=== PATIENT | female | born 1935 | race Caucasian/White ===

== ENCOUNTER 2017-09-06 15:55 | Observation (INO) | payer MEDICARE ==
--- NOTE | 2017-09-06 16:28 | RAD ---
UPRIGHT PORTABLE CHEST ONE VIEW 09/06/17 HISTORY: 81-year-old female with history of chest pain. COMPARISON: 12/26/05. Postop midline sternotomy and coronary artery bypass changes. Minimal cardiomegaly. Biapical pleural thickening. Atherosclerosis of the aorta with ectasia. IMPRESSION: Minimal cardiomegaly. Postop midline sternotomy. Biapical pleural thickening. Atherosclerosis of the aorta with ectasia. Little change from prior study. POS: OFF
[2017-09-06 16:45] LABS: #Eosinphils 0.3 thou/uL (0.0-0.7); #Lymphocytes 2.3 thou/uL (1.20-3.40); #Monocytes 0.9 thou/uL (0.11-0.59); #Neutrophils 3.4 thou/uL (1.40-6.50); %Basophils 0.2 % (0.0-1.0); %Monocytes 13.5 % (0.0-10.0); %Neutrophils 49.2 % (42.0-75.0); Hemoglobin 14.1 g/dL (12.0-16.0); Mean Corpuscular Hemoglobin 32.5 pg (27.0-31.0); Mean Corpuscular Volume 98.5 fl (81.0-99.0); Mean Platelet Volume 6.6 fL (7.4-10.4); Platelet Count 244 thou/uL (130-400); RBC Distribution Width 12.1 % (11.5-14.5); Red Blood Cell (RBC) Count 4.33 mill/uL (4.20-5.40); White Blood Cell (WBC) Count 6.8 thou/uL (4.8-10.8)
[2017-09-06 17:04] LABS: ALT (SGPT) 11 U/L (8-55); AST (SGOT) 19 U/L (5-34); Albumin 3.7 g/dL (3.4-4.8); Alkaline Phosphatase 122 U/L (40-150); Anion Gap 9 mmol/L (10-20); BUN (Urea Nitrogen) 25 mg/dL (9.8-20.1); Bilirubin, Total 1.1 mg/dL (0.2-1.2); CK (CPK) 60 U/L (29-168); Calc. Creatinine Clearance 0 mL/min (70-130); Calcium 8.9 mg/dL (7.8-10.44); Carbon Dioxide 28 mmol/L (23-31); Chloride 106 mmol/L (98-107); Estimated GFR-MDRD 78; Globulin 2.8 g/dL (2.4-3.5); Glucose 115 mg/dL (83-110); Potassium 3.9 mmol/L (3.5-5.1); Protein, Total 6.5 g/dL (6.0-8.3); Sodium 139 mmol/L (136-145)
[2017-09-06 17:07] LABS: Troponin I Less than 0.010 ng/mL (< 0.028)
[2017-09-06] MEDS ORDERED: Nitroglycerin 0.4 MG TAB (25 Tab Bottle) PO PRN (18:39)
[2017-09-06] MEDS ORDERED: Nitroglycerin 2% Ointment 1 INCH/1 GM Packet ONE (18:57)
[2017-09-06 22:15] VITALS: BMI 36.0
[2017-09-07] MEDS ORDERED: Ondansetron HCl/PF 4 MG/2 ML Vial IVP PRN (04:47)
[2017-09-07] MEDS ORDERED: Acetaminophen 325 MG TAB PO PRN (04:47)
--- NOTE | 2017-09-07 05:37 | HP ---
CHIEF COMPLAINT: Chest pain. HISTORY OF PRESENT ILLNESS: This is an 81-year-old female with a prior history of CABG x4 for coronary artery disease, hypertension, who presented with a chief complaint of chest pain. It appears that this was described initially per ER documentation as a substernal chest pain that radiated to the back and worse with exertion. Unfortunately, the patient also has a component of dementia and is otherwise a poor historian. At the time of my evaluation, patient denies any chest pain. She also is not able to recall what her coronary artery bypass or her heart disease was, although she does endorse having some complaint of shortness of breath with easy exertion for the last several days. Per the ER records, it appears that the daughter who was previously at bedside and currently not present reported cough, congestion, night sweats, worsening shortness of breath with mild exertion. REVIEW OF SYSTEMS: As per HPI. Constitutional: No fevers, no chills, other than the night sweats without accompanying temperature. HEENT: Denies any headaches, vision changes, lightheadedness, or dizziness. Cardiovascular: Chest pain as substernal described as above, currently resolved since being in the emergency department. Respiratory: Shortness of breath with exertion, none at rest. Patient herself currently denies any cough. Gastrointestinal: Denies any nausea, vomiting, abdominal pain issues with diarrhea, or constipation. Genitourinary: Denies any issues with dysuria, urinary change, and frequency, or odor. Musculoskeletal: Denies any active myalgias or arthralgias. Remainder of the review of systems otherwise negative. Please see concern for the accuracy of the review of systems given the patient's history of dementia and poor recall of her past medical history. PAST MEDICAL HISTORY: As per above includes, 1. CABG x4 in 2000. 2. Coronary artery disease. 3. "Dementia." 4. Gastroesophageal reflux disease. 5. Prior history of gastric ulcers. 6. Hypothyroidism. 7. Hyperlipidemia 8. Hypertension. 9. Status post bilateral total knee replacement. 10. Status post appendectomy. 11. Status post CABG as noted above. 12. Status post hysterectomy. HOME MEDICATIONS: Please see the EMR for full details. The patient's current regimen seems to be involved metoprolol tartrate 25 mg p.o. b.i.d., levothyroxine 137 mcg p.o. daily, escitalopram oxalate 10 mg p.o. daily, atorvastatin 10 mg p.o. at bedtime, aspirin 81 mg p.o. daily. ALLERGIES: CODEINE, undocumented reaction. FAMILY HISTORY: Patient denies any family history of coronary artery disease. SOCIAL HISTORY: Patient resides at home with her daughter. Denies any tobacco , alcohol, or illicit drug use. PHYSICAL EXAMINATION: GENERAL: Patient is awake, conversant, in no acute distress, lying in the hospital bed. HEENT: Normocephalic, atraumatic, slightly dry mucous membranes. Equal ocular motions are intact. CARDIOVASCULAR: S1, S2. No murmurs, rubs, or gallops. EXTREMITIES: Pulses 2+ bilateral upper extremities, no pitting pedal edema. RESPIRATORY: Reasonable air movement. No wheezes, rales, or rhonchi. Clear to auscultation bad bilaterally. ABDOMEN: Positive bowel sounds, soft, nontender to palpation. LABORATORY DATA AND IMAGING: WBC 6.8, hemoglobin 14.1, hematocrit 42.7, platelets 244. Sodium 139, potassium 3.9, chloride 106, bicarbonate 28, BUN 25 , creatinine 0.72, glucose is 115, calcium 8.9. Total bilirubin 1.1, AST 19, ALT 11, alkaline phosphatase 122. Troponin 0.01 followed by 0.01. BNP natriuretic peptide 97.7, total protein 6.5, albumin 3.7, lipase is 29. On 2017, chest x-ray, impression: Minimal cardiomegaly. Postop midline sternotomy. Biapical pleural thickening. Atherosclerosis of the aorta with ectasia. Little change from prior study. ASSESSMENT AND PLAN: An 81-year-old female who presents with a chief complaint of chest pain at the known history of coronary artery bypass graft. Concern for cardiac etiology of the patient's chest pain. Serial troponins, check an echocardiogram and consult Cardiology given the patient's significant risk factors, question of whether or not a stress test would be warranted in this patient. 1. Hypertension, stable. 2. Hyperlipidemia, stable. 3. Dementia, appears to be grossly stable. DIET: Cardiac. ACTIVITY: As tolerated. Deep venous thrombosis prophylaxis on Lovenox. Admit the patient to observation status, on telemetry [facility]
[2017-09-07] MEDS ORDERED: Enoxaparin Sodium 30 MG/0.3 ML SYRINGE SC SCH (09:00)
[2017-09-07] MEDS ORDERED: Famotidine 40 MG/4 ML VIAL SLOW IVP SCH (09:00)
[2017-09-07] MEDS ORDERED: Metoprolol Tartrate 25 MG TAB PO SCH ×2 (09:30→21:00)
[2017-09-07] MEDS ORDERED: Escitalopram Oxalate 10 mg Tablet PO SCH (09:30)
[2017-09-07] MEDS ORDERED: Aspirin 81 mg Enteric Coated Tablet PO SCH (09:30)
--- NOTE | 2017-09-07 11:31 | CON ---
DATE OF CONSULTATION: 09/07/2017 REASON FOR CONSULTATION: Chest pain. HISTORY OF PRESENT ILLNESS: Ms. Zarate is a very pleasant 81-year-old white female who comes to the hospital for evaluation of chest pain. She had an episode of chest pain in the midsternal area that went through her chest to her back that started yesterday. It came and went for about an hour's time . She was brought into the ER for this and was admitted for rule out. She has been chest pain free since the last episode she had yesterday. She has a history of coronary artery disease and had a byp ass grafting x4 in 2000 and has had stents placed in the past as well. She has followed with Dr. Richard mon for this and the daughter who gives me most of the history tells me that she had a stress test ap proximately 2 years ago and was told that there was an abnormality, but she was not a good candidate for a repeat catheterization. In talking to Mrs. Stovall, she has a lot of short term memory problems , however, she is very adamant with the fact that she does not want to have any procedures done. She does not want to have heart catheterizations. Does not want any stress testing and is not intereste d in bypass surgery at all. She would like to take pills if possible. PAST MEDICAL HISTORY: 1. Coronary artery disease, status post bypass x1 in 2000. 2. Dementia. 3. Gastroesophageal reflux disease. 4. History of gastric ulcers in the past. 5. Hypothyroidism. 6. Hyperlipidemia. 7. Hypertension. PAST SURGICAL HISTORY: 1. Bilateral total knee replacement. 2. Appendectomy. 3. CABG x4 in 2000. 4. Hysterectomy. OUTPATIENT MEDICATIONS: 1. Metoprolol 25 mg b.i.d. 2. Levothyroxine 137 mcg a day. 3. Escitalopram 10 mg a day. 4. Atorvastatin 10 mg a day. 5. Aspirin 81 mg a day. ALLERGIES: CODEINE. FAMILY HISTORY: Positive for coronary artery disease. SOCIAL HISTORY: No alcohol, tobacco or drugs. REVIEW OF SYSTEMS: A 12-point review of systems was done and is all negative unless stated in the his tory, however this is limited due to the patient's dementia, does not even remember having chest pain yesterday. PHYSICAL EXAMINATION: VITAL SIGNS: Temperature 97.4, pulse 72, respiration rate 18, satting 94% on room air, blood pressur e 136/60. GENERAL: Awake, alert and oriented to person, difficulty with place and time, in no distress. HEENT: Normocephalic, atraumatic. NECK: Supple. LUNGS: Clear. CARDIOVASCULAR: S1, S2, no S3, S4, no rubs. There is a grade 2/6 systolic murmur right at upper garry rnal border. ABDOMEN: Soft, positive bowel sounds. EXTREMITIES: 1+ edema. SKIN: Warm and dry. LABORATORY DATA: CBC is unremarkable. Chemistries are unremarkable. Troponins are negative x3. BN P was 97. Lipase was 29. IMAGING DATA: 1. EKG was reviewed. She has got left bundle branch block. 2. Chest x-ray; cardiomegaly with midline sternotomy, biapical pleural thickening, atherosclerosis o f the aorta with ectasia and little change from prior. ASSESSMENT AND PLAN: 1. Chest pain: Certainly concerning for angina. Ms. Zarate is not interested in any invasive inter ventions or even stress testing. She wants to be treated medically only. Daughter is in the room an d daughter tells me that it is her choice and she is really not interested in anything right now. I recommend doing an echocardiogram just to make sure that her LV function is not significantly changed from more recent evaluations and we will request records from Dr. Minaya's office to compare those t o our echo for today. 2. Coronary artery disease: No evidence of ACS. By symptoms, this could be angina. Thank you for letting us to participate in the care of your patient. We will follow. Further recommendation results of echocardiogram and records reviewed.
[2017-09-07 15:38] VITALS: BP 142/64; TEMP 98.1
[2017-09-07] MEDS ORDERED: Atorvastatin Calcium 10 MG TAB PO SCH (21:00)
[2017-09-07] MEDS ORDERED: Famotidine 20 MG TAB PO SCH (21:00)
[2017-09-08] MEDS ORDERED: Levothyroxine Sodium 25 MCG TAB PO SCH ×2 (06:00)
[2017-09-08] MEDS ORDERED: Levothyroxine Sodium 112 MCG TAB PO SCH ×2 (06:00)
[2017-09-08] MEDS ORDERED: Non-Formulary Item 1 EACH (Levothyroxine Sodium [Levothyroxine Sodium] 137 MCG) PO SCH (06:00)
[2017-09-08] MEDS ORDERED: Escitalopram Oxalate 10 mg Tablet PO SCH (09:00)
[2017-09-08] MEDS ORDERED: Aspirin 81 mg Enteric Coated Tablet PO SCH (09:00)
--- NOTE | 2017-09-09 07:46 | DIS ---
DATE OF ADMISSION: 09/06/2017 DATE OF DISCHARGE: 09/07/2017 DISCHARGE DISPOSITION: Home. FOLLOWUP: 1. Follow up with primary nanotechnician, Dr. Minaya. 2. Follow up with Dr. Gaspar in 1 week. ALLERGIES: The patient is allergic to CODEINE. DISCHARGE MEDICATIONS: Same as admission medication. Sublingual nitroglycerin was provided. The patient was seen on the day of discharge. Denies any new complaints, no new chest pain, shortnes s of breath, palpitations. DIAGNOSTIC TESTS: Echocardiogram showed left ventricular ejection fraction 50%-55% with grade I/III diastolic dysfunction, mild mitral regurgitation. BRIEF HOSPITAL COURSE: The patient is an 81-year-old female with coronary artery disease, status pos t CABG, hypertension, hyperlipidemia, and GERD, who presented to the hospital with chest discomfort. Please refer to the history and physical dated 09/07/2017 for further details. The patient was admitted to the hospital with a diagnosis of chest discomfort, rule out acute coronar y syndrome. Serial cardiac enzymes were normal. Due to her cardiac history, the patient was evaluat ed by Cardiology. An echocardiogram was done as discussed above. She has been cleared by Cardiology for discharge. The patient will follow up with primary nanotechnician. FINAL DIAGNOSES: 1. Chest discomfort, acute coronary syndrome ruled out. 2. Negative troponins. 3. Chronic kidney disease stage 2. 4. Coronary artery disease. 5. Gastroesophageal reflux disease. 6. Hypertension. 7. Hyperlipidemia. 8. Hypothyroidism. 9. Obesity with a BMI at 36.1. Plan of care was discussed with the daughter by Cardiology. She stated understanding.
== END 2017-09-07 16:53 | disposition home or self-care (01) ==
LOC: ERS 15:55 → 2SW 18:40
PROVIDERS: ADMIT Internal Medicine; ATTEND Internal Medicine
DX: R07.89 Other chest pain (principal); I25.10 Atherosclerotic heart disease of native coronary artery without angina pectoris; I12.9 Hypertensive chronic kidney disease with stage 1 through stage 4 chronic kidney disease, or unspecified chronic kidney disease; N18.2 Chronic kidney disease, stage 2 (mild); F03.90 Unspecified dementia, unspecified severity, without behavioral disturbance, psychotic disturbance, mood disturbance, and anxiety; K21.9 Gastro-esophageal reflux disease without esophagitis; E78.5 Hyperlipidemia, unspecified; E03.9 Hypothyroidism, unspecified; E66.9 Obesity, unspecified; Z68.36 Body mass index [BMI] 36.0-36.9, adult; Z88.5 Allergy status to narcotic agent; Z79.82 Long term (current) use of aspirin; Z79.899 Other long term (current) drug therapy; Z95.1 Presence of aortocoronary bypass graft; Z96.653 Presence of artificial knee joint, bilateral; Z98.890 Other specified postprocedural states
CPT/HCPCS: 71045; 80053; 82550; 82553; 83690; 83880; 84484 ×2; 85025; 93005; 93306; 94760; 96372; 96374; 99285; G0378; 36415; J1650

== ENCOUNTER 2019-05-12 14:51 | Emergency (ER) | payer MEDICARE ==
[2019-05-12 16:07] LABS: #Eosinphils 0.5 thou/uL (0.0-0.7); #Lymphocytes 1.8 thou/uL (1.20-3.40); #Monocytes 1.2 thou/uL (0.11-0.59); #Neutrophils 8.7 thou/uL (1.40-6.50); %Eosinophils 4.4 % (0.0-10.0); %Lymphocytes 14.9 % (21.0-51.0); %Monocytes 9.9 % (0.0-10.0); %Neutrophils 70.8 % (42.0-75.0); Hemoglobin 11.6 g/dL (12.0-16.0); Mean Corpuscular HGB CONC 33.4 g/dL (32.0-36.0); Mean Corpuscular Hemoglobin 32.7 pg (27.0-31.0); Mean Corpuscular Volume 97.9 fL (78.0-98.0); Mean Platelet Volume 6.9 fL (7.4-10.4); Platelet Count 329 thou/uL (130-400); Red Blood Cell (RBC) Count 3.55 mill/uL (4.20-5.40); White Blood Cell (WBC) Count 12.3 thou/uL (4.8-10.8)
[2019-05-12 16:18] LABS: ALT (SGPT) 16 U/L (8-55); AST (SGOT) 20 U/L (5-34); Albumin 3.2 g/dL (3.4-4.8); Alkaline Phosphatase 87 U/L (40-110); Anion Gap 8 mmol/L (10-20); BUN (Urea Nitrogen) 27 mg/dL (9.8-20.1); Calc. Creatinine Clearance 0 mL/min (70-130); Calcium 8.2 mg/dL (7.8-10.44); Carbon Dioxide 33 mmol/L (23-31); Chloride 101 mmol/L (98-107); Estimated GFR-MDRD 41; Globulin 2.9 g/dL (2.4-3.5); Glucose 119 mg/dL (83-110); Potassium 3.3 mmol/L (3.5-5.1); Protein, Total 6.1 g/dL (6.0-8.3); Sodium 139 mmol/L (136-145)
--- NOTE | 2019-05-12 16:22 | RAD ---
PORTABLE CHEST ONE VIEW: 05/12/2019 3;54 p.m. HISTORY: Flu like symptoms. COMPARISON: 09/06/2017 FINDINGS: Changes of median sternotomy are again seen. The heart size is enlarged. The lungs are well expanded without lobar consolidation, pneumothoraces, tony pulmonary edema or pleural effusions. Chronic reich ges are again seen. There are degenerative changes in the shoulder joints. IMPRESSION: No acute process. POS: TPC
== END 2019-05-12 18:35 | disposition home or self-care (01) ==
LOC: ERS 14:51
DX: J06.9 Acute upper respiratory infection, unspecified (principal); F03.90 Unspecified dementia, unspecified severity, without behavioral disturbance, psychotic disturbance, mood disturbance, and anxiety; I49.9 Cardiac arrhythmia, unspecified; E03.9 Hypothyroidism, unspecified; E78.5 Hyperlipidemia, unspecified; E78.00 Pure hypercholesterolemia, unspecified; I10 Essential (primary) hypertension; F32.9 Major depressive disorder, single episode, unspecified
CPT/HCPCS: 36415; 71045; 80053; 85025; 87804; 94640; 96360; J7620

== ENCOUNTER 2019-05-18 05:09 | Observation (INO) | payer MEDICARE ==
[2019-05-18 05:42] LABS: Hemoglobin 13.4 g/dL (12.0-16.0); Mean Corpuscular HGB CONC 32.9 g/dL (32.0-36.0); Mean Corpuscular Hemoglobin 32.2 pg (27.0-31.0); Mean Platelet Volume 6.7 fL (7.4-10.4); Platelet Count 364 thou/uL (130-400); RBC Distribution Width 12.1 % (11.5-14.5); Red Blood Cell (RBC) Count 4.18 mill/uL (4.20-5.40); White Blood Cell (WBC) Count 17.6 thou/uL (4.8-10.8)
[2019-05-18 05:58] LABS: Band 4 % (5-11); Lymphocytes 21 % (21-51); MDiff Complete? YES; Metamyelocyte 1 % (0-0); Monocytes 2 % (0-10); Neutrophil 70 % (42-75); Platelet Morphology Comment Appears Adequate; RBC Morphology Normal; Reactive Lymphocytes 2 % (0-10)
[2019-05-18 05:59] LABS: ALT (SGPT) 14 U/L (8-55); AST (SGOT) 17 U/L (5-34); Albumin 3.3 g/dL (3.4-4.8); Alkaline Phosphatase 93 U/L (40-110); Anion Gap 10 mmol/L (10-20); BUN (Urea Nitrogen) 22 mg/dL (9.8-20.1); Calc. Creatinine Clearance 0 mL/min (70-130); Calcium 8.2 mg/dL (7.8-10.44); Carbon Dioxide 32 mmol/L (23-31); Chloride 100 mmol/L (98-107); Estimated GFR-MDRD 71; Glucose 86 mg/dL (83-110); Potassium 3.2 mmol/L (3.5-5.1); Protein, Total 6.3 g/dL (6.0-8.3); Sodium 139 mmol/L (136-145)
--- NOTE | 2019-05-18 08:28 | RAD ---
XR Chest 1 View Portable History: Chest pain Comparison: Radiograph May 2019 Findings: Mild improved aeration of the lungs. Heart size is enlarged. Multiple midline sternotomy wi res. No pneumothorax. Moderate degenerative change of both shoulders. Impression: Mild improvement in aeration of the lungs relative to the prior examination.
[2019-05-18] MEDS ORDERED: Nitroglycerin 0.4 MG TAB (25 Tab Bottle) PO PRN (08:56)
[2019-05-18] MEDS ORDERED: Acetaminophen 325 MG TAB PO PRN (08:57)
[2019-05-18] MEDS ORDERED: Pantoprazole 40 MG VIAL IVP SCH (09:15)
[2019-05-18] MEDS ORDERED: Potassium Chloride 20 MEQ TAB PO SCH (09:15)
[2019-05-18] MEDS ORDERED: Sodium Chloride 0.9% (PF) 10 ML VIAL FS PRN (09:31)
[2019-05-18 10:16] VITALS: BMI 34.5
--- NOTE | 2019-05-18 11:12 | HP ---
CHIEF COMPLAINT: Chest pain. HISTORY OF PRESENT ILLNESS: This patient is an 83-year-old female, with a history of coronary artery disease, status post bypass graft number of years ago. The patient follows with Dr. Minaya as her power project manager. She was last admitted here in September of 2017. At that time, the patient had chest pain as well. She was not interested in pursuing an aggressive workup or intervention at that time and all that was performed was an echocardiogram revealing a fairly well-preserved ejection fraction with some evidence of diastolic dysfunction. The patient was subsequently seen in followup with Dr. Minaya. The patient unfortunately has some degree of dementia and therefore is a poor historical source. However, her daughter is present. She believes the patient did have an echocardiogram and a stress test. She was told the results of the stress test did reveal some evidence of blockage, but not enough to warrant any intervention, especially in light of the patient's preference is not to pursue that. The patient was seen here in the emergency department on May 12 six days ago with some upper respiratory infection type symptoms. At that time, she was treated with Z-Thierry, albuterol inhaler, prednisone tablets, and Tessalon Perles. Today, the patient presents to the emergency department again after having awakened around 3:30 in the morning with chest pain. She asked her daughter to call an ambulance. She did use sublingual nitroglycerin x2, which did improve her pain. The patient's daughter reports that she does not remember all of the events that have transpired, but she has not reported any chest pain since she has been in the emergency department. The patient herself has a difficult time quantifying any pain if present. REVIEW OF SYSTEMS: The patient's daughter reports that she does frequently have some generalized abdominal tenderness to palpation on prior physical exams and similar in her extremities. The patient's daughter reports that the patient has been in bed much of the week following this upper respiratory tract infection that did have some associated fever. The daughter reports that she herself has been dealing with the same. All other systems reviewed. All pertinent positives and negatives noted in the History of Present Illness. PAST MEDICAL HISTORY: Notable for the above-mentioned coronary artery disease, status post four-vessel bypass in 2000. She has dementia, gastroesophageal reflux, history of gastric ulcers, hypothyroidism, hyperlipidemia, and hypertension. PAST SURGICAL HISTORY: Includes the coronary artery bypass graft, bilateral knee replacements, bilateral hip replacements, appendectomy, and hysterectomy. FAMILY HISTORY: Negative for coronary artery disease. SOCIAL HISTORY: The patient is a nonsmoker, nondrinker, and nondrug user. She continues to live with her daughter with her own downstairs apartment. CURRENT MEDICATIONS: 1. Metoprolol 25 mg b.i.d. 2. Synthroid 137 mcg p.o. daily. 3. Aspirin 81 mg daily. 4. Atorvastatin 10 mg daily. 5. Lexapro 10 mg daily. 6. Triamterene/hydrochlorothiazide 37.5/25 one p.o. daily. ALLERGIES: CODEINE. PHYSICAL EXAMINATION: VITAL SIGNS: Blood pressure 170/89, pulse 77, respirations 16, temperature is 98.4, and O2 saturations 95% on room air. GENERAL APPEARANCE: Age-appropriate female, in no distress. She is awake and alert. She is confused and not oriented. HEENT: PERRL. No OP lesions. HEART: Regular rate and rhythm without murmurs. LUNGS: Clear to auscultation bilaterally. ABDOMEN: Soft, nondistended. It is mildly diffusely tender, but no guarding. No rebound. EXTREMITIES: There is again tenderness to palpation of the lower extremities. No erythema. No cyanosis, clubbing, or edema. PSYCH: The patient has normal affect, but she is not oriented. NEURO: Appears to have spontaneous movement of all extremities with no focal deficits other than the dementia. DIANGOSTIC DATA: EKG shows left bundle-branch block, otherwise sinus rhythm at 75. White count 17.6, hemoglobin 13.4, and platelets 364. Sodium 139, potassium 3.2, chloride 100, CO2 of 32, BUN 22, and creatinine 0.78. LFTs normal. BNP is 114.4. Troponin 0.013, subsequent 0.010. Chest x-ray shows mild improvement in aeration of the lungs relative to her prior study. IMPRESSION AND PLAN: 1. Chest pain. The patient with a history of known coronary artery disease, who had presented here previously with chest pain and also reports having had an abnormal stress test with her primary power project manager, Dr. Minaya. The patient is still not interested in aggressive interventions including caths or stents. We will keep her on observation and continue to check her troponins and likely try to discuss the case with her power project manager in the morning to confirm the results of the previous studies and also determine medical management changes. She may need a long-acting nitrate in order to try to prevent future episodes. It is also entirely possible that this gastrointestinal related given that she was on Z-Thierry and steroids. We will make sure she is covered with a PPI. She also has some history of peptic ulcer disease and reflux, which certainly could be exacerbated by these. 2. Leukocytosis. I suspect this is due to the steroids. We will check a UA. Chest x-ray appears to be clear. No other source of specific infection, although she does appear to be getting over the upper respiratory tract infection. Her flu screen was negative. 3. History of coronary artery disease. Continue with aspirin, statin, and beta-karlee. 4. Hypothyroidism. Continue with the Synthroid. 5. Hypertension. Continue metoprolol and Dyazide. 6. Hyperlipidemia. Continue with the atorvastatin. Job ID: [id number]
[2019-05-18] MEDS: Escitalopram Oxalate 10 mg Tablet PO SCH (12:03)
[2019-05-18] MEDS: Aspirin 81 mg Enteric Coated Tablet PO SCH (12:03)
[2019-05-18 12:26] LABS: Troponin I Less than 0.010 ng/mL (< 0.028)
[2019-05-18 16:34] LABS: Bilirubin Negative (Negative); Blood, Urine Negative (Negative); Clarity Clear (Clear); Glucose, Urine (Dipstick) Normal (Negative); Leukocyte Negative Leu/uL (Negative); Nitrite Negative (Negative); Protein, Urine (Dipstick) Negative (Neg-Trace); RBC/HPF 0-3 HPF (0-3); Urobilinogen Normal mg/dL (Less than 2); WBC/HPF 0-3 HPF (0-3)
[2019-05-18 16:35] LABS: Bacteria/HPF 1+ HPF (None Seen); Urine Culture Reflex No No
[2019-05-18] MEDS ORDERED: Lidocaine 2% Viscous Solution 10 ML, Aluminum & Magnesium Hydroxide 30 ML SSW SCH (18:15)
[2019-05-18] MEDS: Metoprolol Tartrate 25 MG TAB PO SCH (19:38)
[2019-05-18] MEDS ORDERED: Atorvastatin Calcium 10 MG TAB PO SCH (21:00)
[2019-05-19 04:41] VITALS: TEMP 98.4
[2019-05-19 05:08] LABS: Anion Gap 10 mmol/L (10-20); BUN (Urea Nitrogen) 23 mg/dL (9.8-20.1); Calc. Creatinine Clearance 90 mL/min (70-130); Calcium 7.9 mg/dL (7.8-10.44); Carbon Dioxide 31 mmol/L (23-31); Chloride 102 mmol/L (98-107); Estimated GFR-MDRD 71; Glucose 92 mg/dL (83-110); Potassium 3.9 mmol/L (3.5-5.1); Sodium 139 mmol/L (136-145)
[2019-05-19 05:18] LABS: Band 2 % (5-11); Hemoglobin 13.3 g/dL (12.0-16.0); Hypochromia SLIGHT = 6-15 cells (100X) (0-5/hpf); Lymphocytes 17 % (21-51); MDiff Complete? YES; Mean Corpuscular HGB CONC 32.4 g/dL (32.0-36.0); Mean Corpuscular Hemoglobin 32.1 pg (27.0-31.0); Mean Corpuscular Volume 98.9 fL (78.0-98.0); Mean Platelet Volume 6.6 fL (7.4-10.4); Monocytes 6 % (0-10); Neutrophil 75 % (42-75); Platelet Count 327 thou/uL (130-400); Platelet Morphology Comment Appears Adequate; RBC Distribution Width 12.3 % (11.5-14.5); Red Blood Cell (RBC) Count 4.16 mill/uL (4.20-5.40); White Blood Cell (WBC) Count 14.7 thou/uL (4.8-10.8)
[2019-05-19] MEDS ORDERED: Levothyroxine Sodium 125 MCG TAB PO SCH (06:00)
[2019-05-19 07:53] VITALS: BP 133/66
[2019-05-19] MEDS ORDERED: Triamterene/Hydrochlorothiazide 37.5 mg/25 mg Tablet PO SCH (09:00)
[2019-05-19] MEDS: Metoprolol Tartrate 25 MG TAB PO SCH (09:35)
[2019-05-19] MEDS: Escitalopram Oxalate 10 mg Tablet PO SCH (09:35)
[2019-05-19] MEDS: Aspirin 81 mg Enteric Coated Tablet PO SCH (09:36)
--- NOTE | 2019-05-19 10:50 | DIS ---
DATE OF ADMISSION: 05/18/2019 DATE OF DISCHARGE: 05/19/2019 DISCHARGE DIAGNOSES: 1. Chest pain. 2. History of coronary artery disease. 3. History of recent upper respiratory infection, treated with azithromycin and prednisone. 4. Dementia. 5. Leukocytosis, suspected secondary to steroids. 6. Hypothyroidism. 7. Hypertension. 8. Hyperlipidemia. HISTORY OF PRESENT ILLNESS: The patient is an 83-year-old female, with a history of known coronary artery disease, who is followed by Dr. Minaya. The patient had presented to this facility in September of 2018 with chest pain. At that time, the patient was clear she had no interest in pursuing intervention such as heart catheterization or stenting. She did not even have stress testing performed at that time. She subsequently apparently did follow up with Dr. Minaya where she had a stress test which was reportedly abnormal, but again given the patient's wishes and the findings, there was no intervention. The patient was here at this facility previously with a diagnosis of upper respiratory infection in the emergency department and treated with azithromycin and prednisone. While on those, the patient developed a recurrence of chest pain and presented to the emergency department. She presented via ambulance and she did receive some nitroglycerin, which apparently had some improvement in her pain. However, on my exam with the patient, she has a difficult time remembering her symptoms or remembering interventions or remember any impact that those interventions had on her. She had negative troponin and EKG with no ischemic findings. HOSPITAL COURSE: The patient was placed on observation on telemetry. Telemetry remained unremarkable. Serial troponins were negative. She did report an episode of chest pain in the evening. She was given nitroglycerin and her blood pressure dropped into the 80s, although she remained asymptomatic with that. Subsequently, she was treated with a GI cocktail. Given concern for azithromycin and prednisone causing some distress of her GI tract. The following morning, the patient felt well. She was unsure if she had any pain or not. She otherwise denied any pain at the moment and indicated she felt well. Vital signs were good. Troponins were negative. I discussed the case with Dr. Minaya, who recommended she stay on her current medical regimen and follow up with him and he will research her case further and if he decides there is a need for medication changes, he will notify her of that. Otherwise, the patient is stable for discharge. DISPOSITION: She is discharged to home. She will continue her usual home medications with no changes; however, we will add Protonix 40 mg daily. She is to follow up with Dr. Minaya in [address] Tobias again in the next available appointment and she can return to the hospital anytime she feels the need to do so. Job ID: [id number]
== END 2019-05-19 12:01 | disposition home or self-care (01) ==
LOC: ERS 05:09 → ERHOLD 07:04 → 2SW 10:01
PROVIDERS: ADMIT Hospitalist; ATTEND Emergency Medicine
DX: R07.9 Chest pain, unspecified (principal); I25.10 Atherosclerotic heart disease of native coronary artery without angina pectoris; F03.90 Unspecified dementia, unspecified severity, without behavioral disturbance, psychotic disturbance, mood disturbance, and anxiety; K21.9 Gastro-esophageal reflux disease without esophagitis; E03.9 Hypothyroidism, unspecified; E78.5 Hyperlipidemia, unspecified; I10 Essential (primary) hypertension; D72.829 Elevated white blood cell count, unspecified; F32.9 Major depressive disorder, single episode, unspecified; Z79.82 Long term (current) use of aspirin; Z79.899 Other long term (current) drug therapy; Z88.5 Allergy status to narcotic agent; Z95.1 Presence of aortocoronary bypass graft; Z96.643 Presence of artificial hip joint, bilateral; Z96.653 Presence of artificial knee joint, bilateral
CPT/HCPCS: 71045; 80048; 80053; 81001; 83880; 84484 ×2; 85025 ×2; 93005; 94760 ×2; 96374; 99285; G0378 ×3; 36415; 93010; C9113

== ENCOUNTER 2019-06-24 14:31 | Outpatient (CLI) | payer MEDICARE ==
[~2019-06-24 14:31] MED LIST: Magnevist 469MG/ML 20 ML VIAL ONE
--- NOTE | 2019-06-24 16:35 | MRI ---
BRAIN MRI WITH AND WITHOUT CONTRAST: 06/24/19 COMPARISON: None. HISTORY: Memory loss and confusion. TECHNIQUE: Multiplanar and multisequence MR imaging of the brain obtained with and without contrast. FINDINGS: The diffusion weighted imaging demonstrates no evidence for acute infarction. The axial gradient ech o imaging demonstrates no evidence for intracranial hemorrhage. There is extensive confluent perivent ricular deep and subcortical white matter T2 and FLAIR hyperintensity, evidence of small vessel disea se. There is mild mucosal thickening involving alveolar recess and bilateral maxillary sinuses. There is also mucosal thickening of the right frontal sinus and the anterior ethmoid air cells bilaterally . Arterial flow voids at the axial level of the skull base appear unremarkable on the T2 weighted sharyn ging. No midline shift or mass effect is seen. No ventricular enlargement is evident. The postcontrast imaging demonstrates no abnormal enhancement within the brain parenchyma. IMPRESSION: Prominent small vessel disease. No acute findings. POS: TPC
== END 2019-06-24 14:32 | disposition home or self-care (01) ==
LOC: BICMRI 14:31
PROVIDERS: ATTEND Psychiatry & Neurology Neurology
DX: G94 Other disorders of brain in diseases classified elsewhere (principal); I73.9 Peripheral vascular disease, unspecified
CPT/HCPCS: 70553; 82565; A9579

== ENCOUNTER 2019-07-17 06:10 | Inpatient (IN) | payer MEDICARE ==
[2019-07-17] MEDS ORDERED: Pantoprazole 40 MG VIAL ONE (06:28)
[2019-07-17 06:45] LABS: #Eosinphils 0.1 thou/uL (0.0-0.7); #Lymphocytes 1.1 thou/uL (1.20-3.40); #Monocytes 0.6 thou/uL (0.11-0.59); #Neutrophils 8.1 thou/uL (1.40-6.50); %Basophils 0.2 % (0.0-1.0); %Eosinophils 0.5 % (0.0-10.0); %Lymphocytes 10.7 % (21.0-51.0); %Monocytes 6.2 % (0.0-10.0); %Neutrophils 82.4 % (42.0-75.0); Hemoglobin 11.3 g/dL (12.0-16.0); Mean Corpuscular HGB CONC 34.3 g/dL (32.0-36.0); Mean Corpuscular Hemoglobin 33.7 pg (27.0-31.0); Mean Corpuscular Volume 98.2 fL (78.0-98.0); Mean Platelet Volume 6.9 fL (7.4-10.4); Platelet Count 254 thou/uL (130-400); RBC Distribution Width 11.6 % (11.5-14.5); Red Blood Cell (RBC) Count 3.34 mill/uL (4.20-5.40); White Blood Cell (WBC) Count 9.8 thou/uL (4.8-10.8)
[2019-07-17 06:53] LABS: INR-International Normal Ratio 1.1; PTT 28.1 SEC (22.9-36.1); Prothrombin Time 13.9 SEC (12.0-14.7)
[2019-07-17 07:08] LABS: ALT (SGPT) 9 U/L (8-55); AST (SGOT) 18 U/L (5-34); Albumin 3.6 g/dL (3.4-4.8); Alkaline Phosphatase 99 U/L (40-110); Anion Gap 17 mmol/L (10-20); BUN (Urea Nitrogen) 44 mg/dL (9.8-20.1); Bilirubin, Total 1.2 mg/dL (0.2-1.2); Calc. Creatinine Clearance 0 mL/min (70-130); Calcium 8.8 mg/dL (7.8-10.44); Carbon Dioxide 24 mmol/L (23-31); Chloride 101 mmol/L (98-107); Estimated GFR-MDRD 35; Globulin 2.6 g/dL (2.4-3.5); Glucose 131 mg/dL (83-110); Lipase 44 U/L (8-78); Potassium 3.6 mmol/L (3.5-5.1); Protein, Total 6.2 g/dL (6.0-8.3); Sodium 138 mmol/L (136-145)
--- NOTE | 2019-07-17 07:48 | RAD ---
Portable frontal chest radiograph: 07/17/2019 COMPARISON: 05/18/2019 HISTORY: Bloody stool FINDINGS: Midline sternotomy wires and mediastinal clips are present. Heart and mediastinal contours are grossly unremarkable. There is atherosclerotic calcification of the aortic arch. No focal consolidation or alveolar edema. IMPRESSION: No focal consolidation or alveolar edema.
[2019-07-17] MEDS ORDERED: Ondansetron ODT 4 MG TAB SL PRN (08:00)
[2019-07-17] MEDS ORDERED: Ondansetron PF 4 MG/2 ML Vial IVP PRN (08:00)
[2019-07-17] MEDS ORDERED: Acetaminophen 325 MG TAB PO PRN (08:00)
[2019-07-17] MEDS ORDERED: Sodium Chloride 0.9% 1,000 ML IV SCH (08:00)
--- NOTE | 2019-07-17 08:07 | CT ---
CT Abdomen Pelvis W Con HISTORY: Left lower quadrant pain, rectal bleeding, vomiting blood COMPARISON: None. FINDINGS: There are bilateral breast implants. The lung bases are clear. There are calcified granulomas in the spleen. No calcified gallstones are seen. The liver, pancreas, adrenal glands and kidneys are normal. No free air, free fluid or lymphadenopathy seen in the abdomen or pelvis. There are vascular calcific ations without evidence of aneurysmal dilatation of the abdominal aorta. The small bowel loops are not abnormally dilated. An abnormal appendix is not visualized. Few sigmoid diverticula noted. No per icolonic inflammatory changes are seen. The patient is post hysterectomy. There are vascular calcifications without evidence of aneurysmal dilatation of the abdominal aorta. T here are degenerative changes spine. There are postop changes of bilateral hip arthroplasty. IMPRESSION: No evidence of acute process.
[2019-07-17] MEDS ORDERED: hydrALAZINE 20 MG/ML VIAL SLOW IVP PRN (11:35)
[2019-07-17 12:26] VITALS: BMI 35.4
[2019-07-17] MEDS: Sodium Chloride 0.9% 1,000 ML IV SCH ×2 (12:36→21:20)
--- NOTE | 2019-07-17 13:14 | HP ---
PRIMARY CARE PHYSICIAN: Jatinder Gaspar MD CHIEF COMPLAINT: Diarrhea and blood in the stool. HISTORY OF PRESENT ILLNESS: The history of present illness is taken from the patient's daughter, who is at the bedside as the patient has advanced dementia and is unable to give me a history. Ms. Zarate is a pleasant 83-year-old female, who resides at home with her daughter. She says that yesterday in the afternoon she got up to go to the bathroom and noticed that she was having dark stools and she says every time she would try to get up, she would have to sit back down and have more diarrhea and then after that she started noticing bright red blood as well. It is also reported that she had one episode of vomiting of dark stool as well. The daughter says she does not believe she was having any abdominal pain and she noticed that she did have a poor appetite and that she was also having some chills, but she says she always runs cold. Other than that, we are unable to get much more in the way of history. She says that she is mostly bedbound due to having knee and hip replacements. She needs help with transferring and she is able to walk a little bit with a walker. REVIEW OF SYSTEMS: Essentially unobtainable due to the patient's advanced dementia. PAST MEDICAL HISTORY: Significant for coronary artery disease, dementia, hypothyroidism, hypertension, hyperlipidemia, and previous history of a gastric ulcer. PAST SURGICAL HISTORY: She has had an appendectomy, bilateral total knee replacement, hysterectomy, total hip replacement as well as coronary stents. ALLERGIES: TO CODEINE. SOCIAL HISTORY: Again, she lives with her daughter. She walks with a walker. She is , has 3 children. She is a nonsmoker and nondrinker. FAMILY HISTORY: No history of any illnesses in the family. CURRENT MEDICATIONS: 1. Metoprolol 25 mg twice a day. 2. Synthroid 137 mcg daily. 3. Atorvastatin 10 mg daily. 4. Lexapro 10 mg daily. 5. Maxzide 37.5/25 one tablet daily. 6. Aspirin 81 mg daily. Please note that the patient had been prescribed Protonix, but the patient's daughter had stopped giving it to her. She thought she should not be on it for an extended period of time. PHYSICAL EXAMINATION: GENERAL: She is alert, but she is oriented to person only. VITAL SIGNS: Blood pressure 115/84, heart rate 76, respiratory rate of 18, temperature is 98.2, and O2 saturations 96% on room air. HEENT: Pupils are equal, round, and reactive to light. Extraocular muscles are intact. Sclerae are anicteric. Throat; no erythema, no exudates. NECK: No adenopathy. LUNGS: Clear to auscultation. No wheezing. No rales. No rhonchi. CARDIOVASCULAR: She has a normal S1 and S2. A slight grade 2/6 systolic murmur. ABDOMEN: Obese. It is soft, nontender, and nondistended. Positive for bowel sounds. No rebound. No guarding. EXTREMITIES: She has 1+ edema. No calf tenderness. No significant joint effusions. NEUROLOGIC: Grossly nonfocal. SKIN AND INTEGUMENT: No skin changes. No rash. LABORATORY DATA: The CBC; the white blood cell count 9.8, hemoglobin 11.3, hematocrit is 32.8, and platelet count is 254. INR is 1.1. Sodium 138, potassium 3.6, chloride is 101, CO2 is 24, BUN of 44, creatinine 1.43, and glucose is 131. Liver function tests are normal. IMAGING DATA: She had a CT scan of the abdomen and pelvis, which was essentially negative. ASSESSMENT AND PLAN: 1. This is a pleasant 83-year-old female, who is being admitted for gastrointestinal bleed. It is suspicious for upper gastrointestinal bleed given the dark stools initially. She will be admitted to the medical floor as she is hemodynamically stable at this time and placed on IV Protonix. GI has already been consulted. We will continue clear liquid diet as recommended and hold aspirin and any other NSAID. 2. Hypertension. Again, her blood pressure appears to be clinically stable. We will hold her diuretic blood pressure medicines for now and just place her on p.r.n. medicines as needed. 3. Hypothyroidism. She appears to be clinically euthyroid. We will hold the Synthroid at this time and start as soon as feasible. Otherwise, further recommendations to follow. Job ID: [id number]
--- NOTE | 2019-07-17 16:26 | CON ---
DATE OF CONSULTATION: 07/17/2019 REQUESTING PHYSICIAN: Thom Love MD REASON FOR CONSULTATION: GI bleeding. HISTORY OF PRESENT ILLNESS: Radha Zarate is a very pleasant 83-year-old woman with a history of dementia, also coronary artery disease status post CABG in 2000. She takes a full-dose aspirin daily. She is not on any acid suppression. She previously saw my partner, Dr. Moon, who has since retired. She underwent EGD and colonoscopy in 2012. The EGD at that time showed a single clean-based ulcer in the gastric antrum, with biopsies negative for H pylori. The colonoscopy showed only small internal hemorrhoids and was otherwise normal. The patient does not really have any chronic gastrointestinal symptoms. Normally, her appetite is good. Most recent history is obtained from speaking with her daughter. Yesterday, the patient started to have a change in the bowel movements toward very dark and even jet black stools. She had multiple dark bowel movements through the evening yesterday. About 3 a.m., she passed a bowel movement, which was dark with some reddish tinge around the edges and then became acutely nauseated and had a single episode of emesis of what appeared to be coffee-ground material. She was not really complaining of any abdominal pain throughout all this. Upon presentation to the emergency department this morning, labs demonstrated hemoglobin of 11.3, slightly below her baseline of about 13. BUN is 44 with creatinine 1.43. She has been hemodynamically stable. She was admitted to the hospital and started on Protonix 40 mg q.12 h. She has not passed any further bowel movement since arrival. She has not had any further vomiting since arrival. She is not complaining of any abdominal pain. REVIEW OF SYSTEMS: Full review of systems including constitutional; head, eyes, ears, nose, and throat; GI; ; cardiovascular; respiratory; musculoskeletal; and neurologic systems is negative except as noted in the HPI. PAST MEDICAL HISTORY: 1. Dementia. 2. Hypertension. 3. Hyperlipidemia. 4. Hypothyroidism. 5. Coronary artery disease status post stent placement and coronary artery bypass graft surgery in 2000. 6. Bilateral hip replacements. 7. Depression. 8. Hysterectomy. 9. Appendectomy. 10. Obesity. 11. Gastric ulcer in 07/2012. 12. Hyperplastic colon polyps. 13. Last colonoscopy in 02/2013 showing only small internal hemorrhoids. ALLERGIES: CODEINE. MEDICATIONS: Outpatient medications: 1. Aspirin 325 mg daily. 2. Triamterene and hydrochlorothiazide. 3. Lexapro. 4. Lipitor. 5. Synthroid. 6. Metoprolol. Inpatient medications: Protonix 40 mg IV q.12 h. SOCIAL HISTORY: No smoking, alcohol, or drug use. FAMILY HISTORY: Noncontributory. PHYSICAL EXAMINATION: VITAL SIGNS: Temperature 97.9, pulse 80, blood pressure 114/71, and 96% oxygen saturation on room air. GENERAL: An 83-year-old woman, lying in bed comfortably, in no distress. SKIN: She is slightly pale. No jaundice. No rashes were palpable. EYES: No scleral icterus. Extraocular movements intact. ENT: Mucous membranes moist. No oral lesions. LYMPH: No submandibular or supraclavicular lymphadenopathy. THYROID: Nontender to palpation. HEART: Regular rate and rhythm. LUNGS: Clear to auscultation bilaterally. ABDOMEN: Obese. Bowel sounds present. Soft. Nontender to palpation throughout. EXTREMITIES: No peripheral edema. VESSELS: Radial pulses 2+ bilaterally. NEUROLOGIC: Cranial nerves 2 through 12 intact bilaterally. No focal deficits. MENTAL: She is alert and oriented. She is able to give details about current symptoms, but not really able to supply details about prior history or even recent symptoms. LABORATORY STUDIES: Hemoglobin 11.3, WBC 9.8, platelets 254, and MCV is 98.2. INR 1.1. Sodium 138, potassium 3.6, BUN 44, creatinine 1.43, and glucose 131. Lipase only 44. LFTs all normal with total bilirubin 1.2, alkaline phosphatase 99, AST 18, ALT 9, and albumin 3.6. Recent labs from June had shown severely low [id number] D at only 9.3. IMAGING STUDIES: Chest x-ray showed clear lung reis. CT of the abdomen and pelvis showed no acute processes. She has diverticulosis, but no evidence of diverticulitis. ASSESSMENT AND PLAN: 1. Coffee-ground emesis, single episode. 2. Melena, multiple episodes over the past day. 3. Anemia, mild, possibly representing acute blood loss. 4. Prior history of gastric ulcer in 2012. The patient is clinically stable. Her presentation with coffee-ground emesis and melena seems most consistent with recent upper gastrointestinal bleeding source. She does indeed have a prior history of peptic ulcer disease. She has been appropriately started on IV proton pump inhibitor. Continue to trend hemoglobin and hematocrit and transfuse if needed. I discussed the case with her daughter, Jessica Byers, at [phone]. Further investigation is certainly warranted. We will plan for diagnostic esophagogastroduodenoscopy tomorrow. If the esophagogastroduodenoscopy was unrevealing and the patient had continued evidence of bleeding, we could plan for a colonoscopy the following day, but at this point, I have more suspicion for upper gastrointestinal source. Thank you for the consultation. Please call in the meantime with questions or concerns. Job ID: [id number]
[2019-07-17] MEDS: Pantoprazole 40 MG VIAL IVP SCH (21:16)
[2019-07-18 06:13] LABS: #Eosinphils 0.3 thou/uL (0.0-0.7); #Lymphocytes 2.4 thou/uL (1.20-3.40); #Monocytes 0.9 thou/uL (0.11-0.59); #Neutrophils 4.5 thou/uL (1.40-6.50); %Basophils 0.4 % (0.0-1.0); %Eosinophils 3.3 % (0.0-10.0); %Lymphocytes 29.9 % (21.0-51.0); %Monocytes 10.5 % (0.0-10.0); %Neutrophils 55.8 % (42.0-75.0); Hemoglobin 9.3 g/dL (12.0-16.0); Mean Corpuscular HGB CONC 33.8 g/dL (32.0-36.0); Mean Corpuscular Hemoglobin 33.8 pg (27.0-31.0); Platelet Count 203 thou/uL (130-400); RBC Distribution Width 11.9 % (11.5-14.5); Red Blood Cell (RBC) Count 2.74 mill/uL (4.20-5.40); White Blood Cell (WBC) Count 8.1 thou/uL (4.8-10.8)
[2019-07-18 06:36] LABS: Anion Gap 11 mmol/L (10-20); BUN (Urea Nitrogen) 34 mg/dL (9.8-20.1); Calc. Creatinine Clearance 81 mL/min (70-130); Calcium 8.2 mg/dL (7.8-10.44); Carbon Dioxide 25 mmol/L (23-31); Chloride 107 mmol/L (98-107); Estimated GFR-MDRD 61; Glucose 78 mg/dL (83-110); Potassium 3.5 mmol/L (3.5-5.1); Sodium 139 mmol/L (136-145)
[2019-07-18] MEDS: Pantoprazole 40 MG VIAL IVP SCH ×2 (08:41→20:00)
[2019-07-18] MEDS: Sodium Chloride 0.9% 1,000 ML IV SCH ×2 (08:41→18:42)
--- NOTE | 2019-07-18 09:40 | PDOC.HOSPP ---
- Subjective Encounter Date: 07/18/19 Encounter Time: 09:38 Subjective: Ms. Zarate was seen today in follow-up of GI bleed with acute blood loss anemia. She does not have any complaints. No further bleeding reported. - Objective Vital Signs & Weight: Vital Signs (12 hours) Temp Pulse Resp BP Pulse Ox 07/18/19 09:00 98.1 F 82 20 107/65 90 L 07/18/19 04:41 98.0 F 84 16 117/67 93 L 07/18/19 00:02 98.3 F 81 18 99/65 94 L Weight Weight 233 lb I&O: 07/17/19 07/18/19 07/19/19 06:59 06:59 06:59 Intake Total 1320 Balance 1320 Result Diagrams: 07/18/19 05:52 07/18/19 05:52 Hospitalist ROS - Medication Medications: Active Medications Generic Name Dose Route Start Last Admin Trade Name Freq PRN Reason Stop Dose Admin Sodium Chloride 1,000 mls @ 100 mls/hr 07/17/19 11:35 07/18/19 08:41 Normal Saline 0.9% IV 1,000 mls .Q10H SAROJ Administration Pantoprazole Sodium 40 mg 07/17/19 21:00 07/18/19 08:41 Protonix IVP 40 mg Q12HR SAROJ Administration - Exam Eye: PERRL Heart: RRR, no murmur, no gallops, no rubs, normal peripheral pulses Respiratory: CTAB, no wheezes, no rales, no ronchi, normal chest expansion, no tachypnea Gastrointestinal: soft, non-distended, normal bowel sounds, tender to palpation (+ mild tenderness to palpation) Extremities: no cyanosis, 1+ LE edema (trace pedal edema) Hosp A/P (1) GI bleed Code(s): K92.2 - GASTROINTESTINAL HEMORRHAGE, UNSPECIFIED Status: Acute (2) Acute blood loss anemia Code(s): D62 - ACUTE POSTHEMORRHAGIC ANEMIA Status: Acute (3) Hypertension Code(s): I10 - ESSENTIAL (PRIMARY) HYPERTENSION Status: Chronic (4) Hypothyroidism Code(s): E03.9 - HYPOTHYROIDISM, UNSPECIFIED Status: Chronic (5) Advanced dementia Code(s): F03.90 - UNSPECIFIED DEMENTIA WITHOUT BEHAVIORAL DISTURBANCE Status: Chronic - Plan * GI bleed with acute blood loss anemia- her H&H has dropped some- I suspect this is due to equilibration * Continue IV Protonix * Plan is for EGD today * HTN- blood pressure is stable * Hypothyroidism- clinically euthyroid- re-start synthroid once able * Further recommendations depend on the EGD findings.
[2019-07-18] MEDS ORDERED: PROPOFOL 200 MG/20 ML VIAL ONE (10:18)
[2019-07-18] MEDS ORDERED: PHENYLEPHRINE-NS 100 MCG/ML 10 ML SYRINGE ONE (10:18)
[2019-07-18] MEDS ORDERED: Lidocaine 1% PF 5 ML VIAL ONE (10:18)
--- NOTE | 2019-07-18 12:34 | OP ---
DATE OF PROCEDURE: 07/18/2019 AREA ATTENDANT SURGEON: None. PROCEDURE PERFORMED: Esophagogastroduodenoscopy with biopsies. INDICATIONS: 1. Melena. 2. Coffee-ground emesis. 3. Acute blood loss anemia. MEDICATIONS: See Anesthesia record. FINDINGS: After discussion of the risks, benefits, and alternatives of the procedure, informed consent was obtained and witnessed. Pre-endoscopic cardiopulmonary examination was satisfactory. Time-out was performed before sedation was achieved. Sedation was achieved with Anesthesia assistance in the endoscopy unit. A Pentax adult upper endoscope was placed into the oropharynx and passed through the cricopharyngeus under direct visualization. The esophageal mucosa appeared normal throughout with a normal-appearing Z-line. The endoscope was advanced into the stomach. Forward and retroflexed views of the entire gastric mucosa were obtained. The gastric mucosa showed some very mild patchy erythema in the antrum and fundus. Biopsies were obtained to rule out H pylori. The endoscope was advanced into the pyloric channel. There is a single deep clean-based ulcer in the pyloric channel. There was no evidence of bleeding. There was nothing to endoscopically treat. The endoscope was advanced beyond this area and into the duodenal bulb and second portion of the duodenum, which appeared normal. The upper endoscope was completely withdrawn and the patient allowed to recover. The patient tolerated the procedure well. There were no immediate postprocedure complications. IMPRESSION: 1. Single deep clean-based pyloric channel ulcer, with no active bleeding. No endoscopic therapy applied. 2. No old blood or active bleeding on this examination. 3. Mild gastric erythema, biopsied to rule out Helicobacter pylori. 4. Otherwise normal esophagogastroduodenoscopy. RECOMMENDATIONS: 1. Continue with twice daily proton pump inhibitor. Switch to oral dosing twice daily on hospital discharge. 2. Avoid any nonsteroidal anti-inflammatory drugs. 3. Consider decreasing her aspirin to 81 mg daily rather than 325 mg daily. 4. Follow up pathology on gastric biopsies. If H pylori is present, treat with triple therapy and confirm eradication. 5. Advance diet. 6. We will have her follow up in GI Clinic in the next 3 to 4 weeks. At that point, we will likely schedule followup EGD at the 2-month interval to assure ulcer healing. 7. GI will sign off. Please call back anytime with questions or concerns. Job ID: [id number]
[2019-07-18] MEDS: Acetaminophen 325 MG TAB PO PRN ×2 (14:13→19:58)
[2019-07-19] MEDS: Sodium Chloride 0.9% 1,000 ML IV SCH (03:35)
[2019-07-19] MEDS: Pantoprazole 40 MG VIAL IVP SCH (08:25)
[2019-07-19] MEDS: Acetaminophen 325 MG TAB PO PRN ×2 (10:23→20:47)
--- NOTE | 2019-07-19 14:33 | EKG ---
Test Reason : Blood Pressure : / mmHG Vent. Rate : 076 BPM Atrial Rate : 076 BPM P-R Int : 140 ms QRS Dur : 140 ms QT Int : 472 ms P-R-T Axes : -04 -30 158 degrees QTc Int : 531 ms Normal sinus rhythm Left axis deviation Left bundle branch block Abnormal ECG Confirmed by OSMANI MARTINES D.O. ([id number]), newspaper photo editor MALATHI SNIDER ([id number]) on 07/19/2019 2:32:51 PM Referred By: Confirmed By:OSMANI MARTINES D.O.
[2019-07-19] MEDS: Metoprolol Tartrate 25 MG TAB PO SCH (20:47)
[2019-07-19] MEDS: Atorvastatin Calcium 10 MG TAB PO SCH (20:47)
[2019-07-20] MEDS: Levothyroxine Sodium 112 MCG TAB PO SCH (05:15)
[2019-07-20] MEDS: Levothyroxine Sodium 25 MCG TAB PO SCH (05:15)
[2019-07-20] MEDS: Metoprolol Tartrate 25 MG TAB PO SCH ×2 (08:23→20:01)
[2019-07-20] MEDS: Escitalopram Oxalate 10 mg Tablet PO SCH (08:23)
[2019-07-20] MEDS ORDERED: Non-Formulary Item 1 EACH (Levothyroxine Sodium [Levothyroxine Sodium] 137 MCG) PO SCH (09:00)
[2019-07-20] MEDS: Acetaminophen 325 MG TAB PO PRN ×2 (11:15→20:01)
--- NOTE | 2019-07-20 12:31 | PDOC.HOSPP ---
- Subjective Encounter Date: 07/19/19 Encounter Time: 14:00 Subjective: no abd pain or nausea is tolerating oral diet daughter at bedside - Objective Vital Signs & Weight: Vital Signs (12 hours) Temp Pulse Resp BP Pulse Ox 07/20/19 08:15 91 L 07/20/19 07:24 98.1 F 74 20 126/72 91 L Weight Weight 233 lb I&O: 07/19/19 07/20/19 07/21/19 06:59 06:59 06:59 Intake Total 1300 1500 Output Total 750 300 Balance 550 1200 Result Diagrams: 07/18/19 05:52 07/18/19 05:52 Hospitalist ROS - Medication Medications: Active Medications Generic Name Dose Route Start Last Admin Trade Name Freq PRN Reason Stop Dose Admin Acetaminophen 650 mg 07/17/19 11:35 07/20/19 11:15 Tylenol PO 650 mg Q4H PRN Administration Headache/Fever/Mild Pain (1-3) Atorvastatin Calcium 10 mg 07/19/19 21:00 07/19/19 20:47 Lipitor PO 10 mg HS SAROJ Administration Escitalopram Oxalate 10 mg 07/20/19 09:00 07/20/19 08:23 Lexapro PO 10 mg DAILY SAROJ Administration Levothyroxine Sodium 112 mcg 07/20/19 06:00 07/20/19 05:15 Synthroid PO 112 mcg 0600 SAROJ Administration Levothyroxine Sodium 25 mcg 07/20/19 06:00 07/20/19 05:15 Synthroid PO 25 mcg 0600 SAROJ Administration Metoprolol Tartrate 25 mg 07/19/19 21:00 07/20/19 08:23 Lopressor PO 25 mg BID SAROJ Administration Pantoprazole Sodium 40 mg 07/19/19 21:00 07/20/19 08:23 Protonix PO 40 mg BID SAROJ Administration Sodium Chloride 10 ml 07/18/19 21:00 07/19/19 20:47 Flush - Normal Saline IVF 10 ml Q12HR SAROJ Administration - Exam General Appearance: awake alert Eye: PERRL, anicteric sclera ENT: no oropharyngeal lesions, moist mucosa Neck: supple, no JVD Heart: RRR, no murmur Respiratory: no wheezes, no rales Gastrointestinal: soft, non-distended, normal bowel sounds, no guarding, no rigidity Extremities: no cyanosis, no edema Neurological: cranial nerve grossly intact, no focal deficits Hosp A/P (1) Acute blood loss anemia Code(s): D62 - ACUTE POSTHEMORRHAGIC ANEMIA Status: Acute (2) GI bleed Code(s): K92.2 - GASTROINTESTINAL HEMORRHAGE, UNSPECIFIED Status: Acute Qualifiers: GI bleed type/associated pathology: gastric ulcer Qualified Code(s): K25.4 - Chronic or unspecified gastric ulcer with hemorrhage (3) Advanced dementia Code(s): F03.90 - UNSPECIFIED DEMENTIA WITHOUT BEHAVIORAL DISTURBANCE Status: Chronic (4) Hypertension Code(s): I10 - ESSENTIAL (PRIMARY) HYPERTENSION Status: Chronic Qualifiers: Hypertension type: essential hypertension Qualified Code(s): I10 - Essential (primary) hypertension (5) Hypothyroidism Code(s): E03.9 - HYPOTHYROIDISM, UNSPECIFIED Status: Chronic Qualifiers: Hypothyroidism type: unspecified Qualified Code(s): E03.9 - Hypothyroidism , unspecified - Plan is on protonix was found to have pyloric channel ulcer which was not bleeding on EGD hemostable d/w daughter at bedside, she wants her coming home if she can pivot/help with transfers to wheel chair d/w PT to mobilize her at bedside HH with PT and nursing on discharge may dc if she can help with transfer to wheel chair or chair oral iron
--- NOTE | 2019-07-20 12:33 | PDOC.HOSPP ---
- Subjective Encounter Date: 07/20/19 Encounter Time: 08:30 Subjective: feels better, no complaints ate her breakfast well not fully oriented but responds well to verbal questions - Objective Vital Signs & Weight: Vital Signs (12 hours) Temp Pulse Resp BP Pulse Ox 07/20/19 08:15 91 L 07/20/19 07:24 98.1 F 74 20 126/72 91 L Weight Weight 233 lb I&O: 07/19/19 07/20/19 07/21/19 06:59 06:59 06:59 Intake Total 1300 1500 Output Total 750 300 Balance 550 1200 Result Diagrams: 07/18/19 05:52 07/18/19 05:52 Hospitalist ROS - Medication Medications: Active Medications Generic Name Dose Route Start Last Admin Trade Name Freq PRN Reason Stop Dose Admin Acetaminophen 650 mg 07/17/19 11:35 07/20/19 11:15 Tylenol PO 650 mg Q4H PRN Administration Headache/Fever/Mild Pain (1-3) Atorvastatin Calcium 10 mg 07/19/19 21:00 07/19/19 20:47 Lipitor PO 10 mg HS SAROJ Administration Escitalopram Oxalate 10 mg 07/20/19 09:00 07/20/19 08:23 Lexapro PO 10 mg DAILY SAROJ Administration Levothyroxine Sodium 112 mcg 07/20/19 06:00 07/20/19 05:15 Synthroid PO 112 mcg 0600 SAROJ Administration Levothyroxine Sodium 25 mcg 07/20/19 06:00 07/20/19 05:15 Synthroid PO 25 mcg 0600 SAROJ Administration Metoprolol Tartrate 25 mg 07/19/19 21:00 07/20/19 08:23 Lopressor PO 25 mg BID SAROJ Administration Pantoprazole Sodium 40 mg 07/19/19 21:00 07/20/19 08:23 Protonix PO 40 mg BID SAROJ Administration Sodium Chloride 10 ml 07/18/19 21:00 07/19/19 20:47 Flush - Normal Saline IVF 10 ml Q12HR SAROJ Administration - Exam General Appearance: awake alert Eye: PERRL, anicteric sclera ENT: no oropharyngeal lesions, moist mucosa Neck: supple, no JVD Heart: RRR, no murmur Respiratory: no wheezes, no rales Gastrointestinal: soft, non-tender, non-distended, normal bowel sounds Extremities: no cyanosis, no edema Neurological: cranial nerve grossly intact, no focal deficits Hosp A/P (1) Acute blood loss anemia Code(s): D62 - ACUTE POSTHEMORRHAGIC ANEMIA Status: Resolved (2) GI bleed Code(s): K92.2 - GASTROINTESTINAL HEMORRHAGE, UNSPECIFIED Status: Acute Qualifiers: GI bleed type/associated pathology: gastric ulcer Qualified Code(s): K25.4 - Chronic or unspecified gastric ulcer with hemorrhage (3) Advanced dementia Code(s): F03.90 - UNSPECIFIED DEMENTIA WITHOUT BEHAVIORAL DISTURBANCE Status: Chronic (4) Hypertension Code(s): I10 - ESSENTIAL (PRIMARY) HYPERTENSION Status: Chronic Qualifiers: Hypertension type: essential hypertension Qualified Code(s): I10 - Essential (primary) hypertension (5) Hypothyroidism Code(s): E03.9 - HYPOTHYROIDISM, UNSPECIFIED Status: Chronic Qualifiers: Hypothyroidism type: unspecified Qualified Code(s): E03.9 - Hypothyroidism , unspecified - Plan is on protonix bid was found to have pyloric channel ulcer which was not bleeding on EGD hemostable PT to mobilize her at bedside HH with PT and nursing on discharge may dc home if she can help with transfer to wheel chair or chair oral iron
[2019-07-20] MEDS: Atorvastatin Calcium 10 MG TAB PO SCH (20:01)
[2019-07-21] MEDS: Levothyroxine Sodium 25 MCG TAB PO SCH (05:19)
[2019-07-21] MEDS: Levothyroxine Sodium 112 MCG TAB PO SCH (05:19)
[2019-07-21] MEDS: Escitalopram Oxalate 10 mg Tablet PO SCH (08:30)
[2019-07-21] MEDS: Metoprolol Tartrate 25 MG TAB PO SCH (08:30)
[2019-07-21 11:05] VITALS: BP 132/78; TEMP 97.8
--- NOTE | 2019-07-21 14:39 | DIS ---
DATE OF ADMISSION: 07/17/2019 DATE OF DISCHARGE: 07/21/2019 DISCHARGE DISPOSITION: To home with [facility]. PRIMARY DISCHARGE DIAGNOSES: Acute blood loss anemia with gastrointestinal bleed, pyloric channel ulcer, and acute kidney injury. SECONDARY DISCHARGE DIAGNOSES: Deconditioning, dementia, hypotension, hypothyroidism. PROCEDURES DONE DURING HOSPITALIZATION: The patient has had upper endoscopy done by Dr. Devon Huber on 07/18/2019. She was found to have had single deep clean-based pyloric channel ulcer with no active bleeding. Mild gastric erythema was seen. Abdominal and pelvic CAT scan done on the day of admission showed no acute process. Chest x-ray on the day of admission showed no focal consolidation or alveolar edema. H and H of 9 and 27, platelet count 203, and MCV 100. PT, INR, and PTT within normal limits. Initial BUN and creatinine were 44 and 1.4. Discharge BUN and creatinine are 34 and 0.8. Albumin is 3.6. DISCHARGE MEDICATION: 1. Protonix 40 mg twice daily. 2. Ferrous sulfate 325 mg twice daily. 3. Aspirin 81 mg p.o. daily. 4. Triamterene with hydrochlorothiazide 37.5/25 mg p.o. daily. 5. Lopressor 25 mg twice daily. 6. Levothyroxine 137 mcg p.o. daily. 7. Lexapro 10 mg daily. 8. Atorvastatin 10 mg p.o. at bedtime. ALLERGIES: ALLERGIC TO CODEINE. DISCHARGE PLAN: The patient to follow up with her primary care physician, Dr. Jatinder Gaspar, in 1 week, Dr. Devon Huber in 2 to 3 weeks. BRIEF COURSE DURING HOSPITALIZATION: The patient initially got admitted on the with complaints of blood in her stool. In view of this history, the patient was admitted to Medical Floor. She has had serial H and H done. Ms. Radha Zarate had consultation with Dr. Devon Huber for Gastroenterology. Upper endoscopy done, revealed pyloric channel ulcer and gastric erythema. No transfusion was done. Her H and H have remained stable. She did not have any further bleeding. The patient has deconditioning and is able to pivot from bed to wheelchair with assistance. Her daughter is wanting to take her home. [facility] has been arranged with physical therapy. Please note, I have seen and examined the patient on the day of discharge. Job ID: [id number]
== END 2019-07-21 15:26 | disposition home health service (06) | DRG 378 ==
LOC: ERS 06:10 → T4-A 09:14
PROVIDERS: ADMIT Internal Medicine; ATTEND Internal Medicine
PROC: 0DB78ZX Excision of Stomach, Pylorus, Via Natural or Artificial Opening Endoscopic, Diagnostic (ICD-10-PCS; principal; 2019-07-18)
DX: K25.4 Chronic or unspecified gastric ulcer with hemorrhage (principal); D62 Acute posthemorrhagic anemia; N17.9 Acute kidney failure, unspecified; R53.81 Other malaise; F03.90 Unspecified dementia, unspecified severity, without behavioral disturbance, psychotic disturbance, mood disturbance, and anxiety; I95.9 Hypotension, unspecified; E03.9 Hypothyroidism, unspecified; E66.9 Obesity, unspecified; K25.9 Gastric ulcer, unspecified as acute or chronic, without hemorrhage or perforation; Z96.643 Presence of artificial hip joint, bilateral; I25.10 Atherosclerotic heart disease of native coronary artery without angina pectoris; Z90.49 Acquired absence of other specified parts of digestive tract; Z95.5 Presence of coronary angioplasty implant and graft; Z88.8 Allergy status to other drugs, medicaments and biological substances; Z95.1 Presence of aortocoronary bypass graft; Z90.710 Acquired absence of both cervix and uterus; Z86.010 Personal history of colon polyps; Z68.35 Body mass index [BMI] 35.0-35.9, adult
CPT/HCPCS: 36415; 71045; 74177; 80048; 80053; 83690; 85025; 85610; 85730; 86850; 86900; 86901; 88305; 88312; 93005; C9113; J2001; J2704